=== PATIENT | female | born 1990 ===

== ENCOUNTER 2019-02-13 16:40 | Inpatient (IN) | payer OTHER ==
[~2019-02-13] VITALS: Ht 162.6 cm; Wt 75.9 kg
[2019-02-13] MEDS ORDERED: CONCEPT DHA1 CAP PO (17:54)
[2019-02-13] MEDS ORDERED: MOTRIN 800800 MG/TAB PO (17:55)
[2019-02-13] MEDS ORDERED: PERCOCET 325 MG1 TA2 PO (17:55)
[2019-02-13 18:12] VITALS: BP 109/81; PULSE 56; TEMP 98
--- NOTE | 2019-02-13 18:57 | NUR ---
Patient in room with baby. States she is having someone from family support from [facility] come stay with her and baby. Denies pain at this time. Initial assessment complete. Provided patient with bassinet and breast pump supplies. Per Dr. Hawkins surgical consult called in and they will consult GI. Denies further needs at this time. Reported off to shift engineer.
[2019-02-13 19:40] VITALS: BP 147/102; PULSE 71; TEMP 97.9
[2019-02-14 00:14] VITALS: BP 102/70; PULSE 58; TEMP 98.4
[2019-02-14 05:06] LABS: HEMATOCRIT 37.6 % (37.0-47.0); HEMOGLOBIN 12.6 g/dl (12.5-16.0); MEAN CELL VOLUME 87 fl (80.0-100.0); MEAN CORPUSCULAR HEMOGLOBIN 29 pg (27.0-31.0); MEAN CORPUSCULAR HGB CONC 34 g/dl (33.0-37.0); MEAN PLATELET VOLUME 11.2 fl (7.4-10.4); PLATELET COUNT 254 K/mm3 (130-400); RED BLOOD COUNT 4.32 M/mm3 (4.10-5.30)
[2019-02-14 05:13] LABS: BILIRUBIN,TOTAL 4.7 mg/dL (0.0-1.0); CREATININE, serum 0.73 (0.52-1.25); POTASSIUM 3.5 mmol/L (3.4-5.0); TOTAL PROTEIN 7.2 gm/dL (6.4-8.2)
--- NOTE | 2019-02-14 05:19 | NUR ---
RESTING QUIETLY. PT ADMIN. MORPHINE x1 FOR ABDOMINAL PAIN. PT USING FACILITY BREAST PUMP, BREAST MILK BEING TAKEN TO [facility] FOR STORAGE.
[2019-02-14 05:39] VITALS: BP 123/90; PULSE 63; TEMP 99.3
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
[2019-02-14 08:09] VITALS: BP 123/81; PULSE 48; TEMP 98.1
[2019-02-14 11:11] VITALS: BP 123/90; PULSE 62; TEMP 97.6
--- NOTE | 2019-02-14 12:16 | NUR ---
PATIENT CALLED OUT REQUESTED MEDICATION FOR NAUSEA. PATIENT GIVEN PRN DOSE OF IV ZOFRAN. WILL CONTINUE TO MONITOR.
--- NOTE | 2019-02-14 13:20 | NUR ---
ANESTHESIA PAGED AND NOTIFIED OF ERCP AND NOEMI SEDATION CONSULT FOR 02/15/2019.
[2019-02-14 15:35] VITALS: BP 134/92; PULSE 67; TEMP 98.3
--- NOTE | 2019-02-14 16:00 | NUR ---
PATIENT'S 8 BOTTLES OF BREAST MILK SENT HOME FOR BABY WITH PATIENT'S FRG LEADER, SHANIA ANTOINE. PER PATIENT REQUEST.
--- NOTE | 2019-02-14 16:53 | NUR ---
Plans to return home to [place]. Patient reports that she is to her Bird Jacobson who is deployed in [place] with no phone number contact. Pt had concerns of being charged for a breast pump so that she could pump and get it to her DTR, . Pt has an associate from her fuel cell binder support group keeping her child for her. (Darlene Juan ). Patient reports that she does not have any support system her with her DTR. PCP is on [facility] but not assigned. Patient [place] [facility] [place] Patient indicated that uses a breast pump but nothing else. Patient reports that she hopes to obtain a ride home bec[place]ase [place]. SW provided her with a resource packet for the local and surrounding area. Will need to follow-up
--- NOTE | 2019-02-14 18:04 | NUR ---
PATIENT REQUESTED NAUSEA MEDICATION. PATIENT GIVEN PRN IV ZOFRAN.
--- NOTE | 2019-02-14 19:04 | NUR ---
REPORT GIVEN TO JEREMI PHILIPPE.
--- NOTE | 2019-02-14 19:14 | NUR ---
PATIENT CONSENT FORMS FOR ERCP AND NOEMI SIGNED AND ON PATIENT CHART.
[2019-02-14 21:11] VITALS: BP 122/86; PULSE 57; TEMP 97.9
[2019-02-15] VITALS (11 sets, daily range): BP systolic 97–139; BP diastolic 53–98; PULSE 57–86; TEMP 98.1–99.6
[2019-02-15 07:14] LABS: BASO % 0.5 % (0.0-2.0); EOS # 0.1 (0.0-0.7); GRAN # 2.9 (1.4-6.5); GRAN % 66.6 % (42.2-75.2); HEMATOCRIT 39.2 % (37.0-47.0); HEMOGLOBIN 13.2 g/dl (12.5-16.0); LYMPH # 1.1 (1.2-3.4); LYMPH % 24.4 % (20.0-51.0); MEAN CELL VOLUME 88 fl (80.0-100.0); MEAN CORPUSCULAR HEMOGLOBIN 30 pg (27.0-31.0); MEAN CORPUSCULAR HGB CONC 34 g/dl (33.0-37.0); MEAN PLATELET VOLUME 11.6 fl (7.4-10.4); MONO # 0.2 (0.1-0.6); MONO % 5.3 % (1.7-9.3); PLATELET COUNT 282 K/mm3 (130-400); RED BLOOD COUNT 4.44 M/mm3 (4.10-5.30); REDCELL DISTRIBUTION WIDTH-CV 13.2 % (11.5-14.5)
[2019-02-15 07:23] LABS: ALBUMIN 4.1 gm/dL (3.5-5.0); BILIRUBIN,TOTAL 1.9 mg/dL (0.0-1.0); CALCIUM 9.4 mg/dL (8.4-10.2); CREATININE, serum 0.75 (0.52-1.25); POTASSIUM 3.5 mmol/L (3.4-5.0); TOTAL PROTEIN 7.6 gm/dL (6.4-8.2)
--- NOTE | 2019-02-15 07:29 | NUR ---
[place] FOR PAIN THIS MORNING. PT STATED IT DIDN'T HELP MUCH. PT ADMIN. TYLENOL AND GIVEN A KPAD WHICH SEEMED TO EASE PAIN A LITTLE MORE. PT PUMPING, BREASTMILK TAKEN TO [facility].
--- NOTE | 2019-02-15 13:15 | NUR ---
Patient is ready for her procedures. She has been NPO since midnight. No complaints of nause at this time. Continues to have pain. Morphine given once this shift for pain. She stated she is nervous about taking the morphine too much because it has made her sick befoer. No other changes at this time. Consent signed and on the chart. No other changes at this time. Call light within reach.
--- NOTE | 2019-02-15 13:49 | NUR ---
Initial visit; Due to upcoming surgical procedure patient feeling alone and tearful. Higher Education Administrator offered comfort, assurance and prayer. Unique is . Higher Education Administrator will follow up.
--- NOTE | 2019-02-15 17:00 | NUR ---
Patient is back from surgery at this time. She s very drowsy. Denies nausea at this time. She got over to the bed with minimal assist. Will continue to monitor.
--- NOTE | 2019-02-15 18:15 | NUR ---
Assisted patient to bathroom. Was going to give 1st dose of norco but patient became nauseous and vomitted a small amount dark green/brown emesis. She did not want to take any medication at this time. Explained she may need to try eating or drinking something to help settle her stomach because she has not ate anything all day. Patient verbalized understanding. She is resting comfortably at this time. She is drinking some water at this time. No other changes at this time. Call light within reach.
--- NOTE | 2019-02-15 19:15 | NUR ---
Report received from Linette BLOOD. Patient rests in bed on right side. Drowsy but alert and oriented x 4. Has pain reports / but declines pain med and sandwich at this time. States will let nurse when she's ready for above. IVF's begun at 100mls/hr. Reports she just wants to sleep at this time.
--- NOTE | 2019-02-15 22:00 | NUR ---
Takes 2 jellos and 1/2 of sandwich and crackers given followed by rebeca for pain. Up to the bathroom and voids. Breast pump at bedside but decides not to utilize at this time. "Just want to sleep". Patient is staying through the night and states will go home in am.
--- NOTE | 2019-02-15 23:30 | NUR ---
Patient rests quietly in bed with eyes closed. Respirations with ease.
--- NOTE | 2019-02-16 02:00 | NUR ---
Has been resting in bed with eyes closed. Respirations with ease.
[2019-02-16 03:41] VITALS: BP 122/84; PULSE 94; TEMP 99
--- NOTE | 2019-02-16 03:45 | NUR ---
Patient awake and called for pain med. Encouraged deep breathing and snack prior to pain med. Takes crackers and norco 1 tab given. Denies nausea. Reports she's voiding within normal limits. States is going to use breast pump.
--- NOTE | 2019-02-16 05:41 | NUR ---
Patient reports high level of pain right abdomin and ibuprofen 600mg given. Will monitor.
--- NOTE | 2019-02-16 06:25 | NUR ---
Patient reports did walk around in room. Would like [place] as soon as she can have it. Explained can have in 1 hour.
[2019-02-16 06:47] LABS: ALBUMIN 3.6 gm/dL (3.5-5.0); BILIRUBIN,TOTAL 1.3 mg/dL (0.0-1.0); CALCIUM 8.9 mg/dL (8.4-10.2); CREATININE, serum 0.71 (0.52-1.25); MAGNESIUM 1.6 mg/dL (1.6-2.3); POTASSIUM 3.5 mmol/L (3.4-5.0); TOTAL PROTEIN 6.5 gm/dL (6.4-8.2)
[2019-02-16 06:55] LABS: BASO % 0.5 % (0.0-2.0); EOS % 0.5 % (0-4.0); GRAN # 4.7 (1.4-6.5); GRAN % 75.9 % (42.2-75.2); HEMOGLOBIN 12.3 g/dl (12.5-16.0); LYMPH % 16.5 % (20.0-51.0); MEAN CELL VOLUME 88 fl (80.0-100.0); MEAN CORPUSCULAR HEMOGLOBIN 30 pg (27.0-31.0); MEAN CORPUSCULAR HGB CONC 34 g/dl (33.0-37.0); MEAN PLATELET VOLUME 11.5 fl (7.4-10.4); MONO # 0.4 (0.1-0.6); MONO % 6.4 % (1.7-9.3); PLATELET COUNT 253 K/mm3 (130-400); RED BLOOD COUNT 4.14 M/mm3 (4.10-5.30); REDCELL DISTRIBUTION WIDTH-CV 13.2 % (11.5-14.5)
[2019-02-16 07:07] LABS: HEMATOCRIT 36.3 % (37.0-47.0)
[2019-02-16 07:16] VITALS: BP 104/64; PULSE 76; TEMP 98.4
--- NOTE | 2019-02-16 08:00 | NUR ---
PATIENT RESTING IN BED THIS MORNING. PATIENT IS A&OX4. VSS. SHALLOW BREATHING NOTED, PATIENT DENIES SOB OF PRODUCTIVE COUGH. BOWEL SOUNDS ACTIVE ALL FOUR QUADRANTS. ABDOMEN SLIGHTLY DISTENDED BUT SOFT TO PALPATION. PATIENT PASSING FLATUS. ABDOMINAL LAP SITES X4 WALDEMAR WITH AYALA SET IN PLACE AND ARE CD&I. PATIENT TOLERATING DIET WITHOUT ANY COMPLAINTS OF N/V. LEFT SIDE OF LOWER LIP IS SWOLLEN. INT TO LEFT HAND. CALL LIGHT WITHIN REACH. NO OTHER NEEDS AT THIS TIME.
[2019-02-16 11:35] VITALS: BP 113/78; PULSE 84; TEMP 98.7
--- NOTE | 2019-02-16 13:18 | NUR ---
Follow-up visit; Patient doing better, thanked Spark Plug Tester for looking in on her again and for thinking of her and keeping her in [employer] T[employer]'s prayers.
--- NOTE | 2019-02-16 13:22 | NUR ---
PATIENT PROVIDED PRN PO NORCO NEEDED FOR PAIN. INT REMOVED BY JEREMI FERNANDEZ. DISCHARGE INSTRUCTIONS REVIEWED WITH PATIENT. PATIENT TAKEN TO PERSONAL VEHICLE. PATIENT DISCHARGED.
== END 2019-02-16 13:22 | disposition home or self-care (01) | DRG 419 ==
LOC: SURG 16:40
PROVIDERS: Internal Medicine Gastroenterology; Nurse Practitioner Family; Surgery; ADMIT Student in an Organized Health Care Education/Training Program
PROC: 0F798ZZ Dilation of Common Bile Duct, Via Natural or Artificial Opening Endoscopic (ICD-10-PCS; 2019-02-15)
PROC: BF101ZZ Fluoroscopy of Bile Ducts using Low Osmolar Contrast (ICD-10-PCS; 2019-02-15)
PROC: 0FT44ZZ Resection of Gallbladder, Percutaneous Endoscopic Approach (ICD-10-PCS; principal; 2019-02-15 14:00)
PROC: BF121ZZ Fluoroscopy of Gallbladder using Low Osmolar Contrast (ICD-10-PCS; 2019-02-15 14:00)
DX: K80.42 Calculus of bile duct with acute cholecystitis without obstruction (principal)
CPT/HCPCS: 99222-AI; 99231-AI; 99232-AI; 99239; C1769; J1335; J2270; J2405; J2704; J3010; J7030; J7120; Q9967